=== PATIENT | male | born 1930 | race Caucasian/White ===

== ENCOUNTER 2019-02-07 03:17 | Emergency (ER) | payer MEDICARE ==
[~2019-02-07] VITALS: Ht 167.6 cm; Wt 62.6 kg
[2019-02-07 04:41] LABS: PLATELET COUNT 242 x10^3mcL (130-400)
[2019-02-07 04:44] LABS: RED CELL DISTRIBUTION WIDTH 14.9 % (11.5-14.5)
[2019-02-07 04:50] LABS: BAND NEUTROPHIL 3 % (0-10); MONOCYTE 7 % (0-7); SEGMENTED NEUTROPHILS 88 % (37-75)
[2019-02-07 04:52] LABS: PLATELET MORPHOLOGY PLATELETS NORMAL; rbc morphology (normal/abnorm) NORMAL (NORMAL)
[2019-02-07 04:59] LABS: SODIUM SERUM 142 mmol/L (136-145)
[2019-02-07 05:00] LABS: ALBUMIN 3.8 g/dL (3.4-5.0); BILIRUBIN TOTAL 0.57 mg/dL (0.20-1.00); CALCIUM 8.2 mg/dL (8.5-10.1); CARBON DIOXIDE 28.6 mmol/L (21-32); CHLORIDE SERUM 106 mmol/L (98-107); GLUCOSE SERUM 121 mg/dL (74-106); POTASSIUM SERUM 3.7 mmol/L (3.5-5.1); TOTAL PROTEIN, SERUM 7.2 g/dL (6.4-8.2)
[2019-02-07 05:01] LABS: ALKALINE PHOSPHATASE 91 U/L (46-116); ALT/SGPT 30 U/L (16-63); AST/SGOT 38 U/L (15-37); C REACTIVE PROTEIN 2.2 mg/dL (<=0.9)
[2019-02-07 05:28] LABS: ERYTHROCYTE SED RATE 23 mm/hr (0-20)
[2019-02-07 07:32] VITALS: BP 104/69
== END 2019-02-07 07:32 | disposition left against medical advice (07) ==
LOC: ED 03:17
PROVIDERS: Emergency Medicine
DX: S61.452A Open bite of left hand, initial encounter (principal); L03.114 Cellulitis of left upper limb; W55.01XA Bitten by cat, initial encounter; Y93.89 Activity, other specified; Y92.89 Other specified places as the place of occurrence of the external cause; Y99.8 Other external cause status
CPT/HCPCS: 90715; J0295; J7030; Q0092